=== PATIENT | female | born 1970 | race Caucasian/White ===

== ENCOUNTER 2024-04-15 10:42 | Emergency (ER) | payer MEDICARE, MEDICAID ==
[2024-04-15] MEDS: Proparacaine 0.5% Ophth Soln 15 ML Bottle EYERT ONE (12:24)
== END 2024-04-15 12:26 | disposition home or self-care (01) ==
LOC: JP.ED 10:42
DX: H11.31 Conjunctival hemorrhage, right eye (principal); E03.9 Hypothyroidism, unspecified; Z87.891 Personal history of nicotine dependence; Z90.710 Acquired absence of both cervix and uterus; Z79.899 Other long term (current) drug therapy; Z79.890 Hormone replacement therapy; Z88.2 Allergy status to sulfonamides
CPT/HCPCS: 99283; A9270

== ENCOUNTER 2024-05-24 09:52 | Emergency (ER) | payer MEDICARE, MEDICAID ==
[2024-05-24 11:53] LABS: MEAN CORPUSCULAR HEMOGLOBIN 27.2 pg (31.6-35.5); MEAN CORPUSCULAR HGB CONC 34.2 g/dL (31.6-35.5); MEAN CORPUSCULAR VOLUME 79.5 fL (81.4-99.0); RED BLOOD CELL COUNT 2.39 M/uL (3.77-5.24); WHITE BLOOD CELL COUNT,WBC 2.6 K/uL (3.2-11.0)
[2024-05-24] MEDS: Sodium Chloride 0.9% 10 ML Syringe FLUSH PRN (12:11)
[2024-05-24 12:17] LABS: ALANINE AMINOTRANSFERASE,ALT 7 U/L (12-78); ALBUMIN 3.6 g/dL (3.4-5.0); ALKALINE PHOSPHATASE 80 U/L (46-116); ASPARTATE AMNIOTRANSFERASE,AST 14 U/L (15-37); BILIRUBIN TOTAL 2.4 mg/dL (0.2-1.0); BLOOD UREA NITROGEN,BUN 12 mg/dL (7-18); C-REACTIVE PROTEIN 5.21 mg/dL (<0.50); CALCIUM 9.2 mg/dL (8.5-10.1); CARBON DIOXIDE,CO2 24 mmol/L (21-32); CHLORIDE,CL 98 mmol/L (100-108); CREATININE 0.8 mg/dL (0.6-1.0); EST CRCL DRUG DOSING (CG) 71.12 mL/min; ESTIMATED GFR 87 mL/min (>60); GLUCOSE RANDOM 106 mg/dL (74-106); PROTEIN TOTAL,TP 7.3 g/dL (6.4-8.2); SODIUM,NA 136 mmol/L (140-148)
[2024-05-24 12:42] LABS: HEMOGLOBIN 6.5 g/dL (11.2-15.5); PLATELET COUNT,PLT 17 K/uL (130-375)
[2024-05-24 12:43] LABS: BAND ABSOLUTE MAN 0.03 K/uL; BAND PERCENT MAN 1 % (5-11); HYPOCHROMASIA MODERATE; LYMPHOCYTES ABSOLUTE MAN 1.22 K/uL (0.8-3.3); LYMPHOCYTES PERCENT MAN 47 % (24-44); METAMYELOCYTE ABSOLUTE MAN 0.21 K/uL; METAMYELOCYTE PERCENT MAN 8 %; MONOCYTES ABSOLUTE MAN 0.26 K/uL (0.20-0.90); MONOCYTES PERCENT MAN 10 % (2-6); MYELOCYTE PERCENT MAN 4 %; NEUTROPHILS ABSOLUTE MAN 0.78 K/uL (1.0-7.6); NRBC MANUAL 3; SCHISTOCYTES FEW; SEG NEUTROPHILS PERCENT MAN 30 % (36-66)
[2024-05-24 12:44] LABS: OVALOCYTES FEW; TEARDROP CELLS MODERATE
[2024-05-24 12:51] LABS: INR 1.2; PROTHROMBIN TIME 11.8 sec (9.2-10.6)
[2024-05-24 12:53] LABS: PTT,PARTIAL THROMBOPLSTIN TIME 22.5 sec (21.8-27.3)
[2024-05-24] MEDS ORDERED: Sodium Chloride 0.9% 100 ML IV ONE (13:08)
[2024-05-24] MEDS ORDERED: Sodium Chloride 0.9% 10 ML Syringe FLUSH PRN (13:08)
[2024-05-24] MEDS ORDERED: Iopamidol 755 Mg/ML 100 ML Bottle IV SCH (13:15)
[2024-05-24] MEDS: Acetaminophen 325 MG Tab PO ONE (14:31)
[2024-05-24] MEDS: diphenhydrAMINE 50 MG/ML SDV IV ONE (14:36)
[2024-05-24] MEDS: Amoxicillin/Clavulanate K 875-125 MG Tab PO ONE (16:16)
[2024-05-24] MEDS: Cefepime 2 GM in Sodium Chloride 0.9% 50 ML IV ONE (16:54)
== END 2024-05-24 17:58 | disposition home or self-care (01) ==
LOC: JP.ED 09:52
DX: R06.00 Dyspnea, unspecified (principal); R53.83 Other fatigue; D64.9 Anemia, unspecified; D69.6 Thrombocytopenia, unspecified; D72.819 Decreased white blood cell count, unspecified; C80.1 Malignant (primary) neoplasm, unspecified; E03.9 Hypothyroidism, unspecified; Z88.2 Allergy status to sulfonamides; Z79.890 Hormone replacement therapy; Z79.899 Other long term (current) drug therapy; Z90.710 Acquired absence of both cervix and uterus
CPT/HCPCS: 36415; 36430; 71045; 71275; 80053; 83605; 84484; 85025; 85610; 85730; 86140; 86850; 86900; 86901; 86920; 86922; 87040; 93005; 93010; 96365; 96375; 99284; 99285; A9270; J0692; J1200; J3490; P9016

== ENCOUNTER 2024-06-06 10:36 | Emergency (ER) | payer MEDICARE, MEDICAID ==
[2024-06-06] MEDS ORDERED: Naloxone 0.4 MG/ML SDV IVPUSH PRN (11:29)
[2024-06-06 11:40] LABS: CARBOXYHEMOGLOBIN 2.4 % (0.0-1.6); METHEMOGLOBIN 1.2 %; O2 SATURATION VENOUS 23.6; OXYHEMOGLOBIN 22.8 %; PCO2 VENOUS 30.5 mm/Hg; PH,VENOUS 7.365 (7.350-7.450); PO2 VENOUS 19.6 mm/Hg; TOTAL HEMOGLOBIN 8.7 g/dL (12.0-16.0)
[2024-06-06] MEDS: Nitroglycerin 0.4 MG Tab.SL SL PRN (11:47)
[2024-06-06] MEDS: Ondansetron 4 MG/2 ML SDV IVPUSH ONE (11:49)
[2024-06-06 11:50] LABS: INR 1.2; PROTHROMBIN TIME 12.5 sec (9.2-10.6)
[2024-06-06] MEDS: Sodium Chloride 0.9% 1,000 ML IV ONE (11:50)
[2024-06-06] MEDS: HYDROmorphone 0.5 MG/0.5 ML Syringe IVPUSH PRN (11:50)
[2024-06-06] MEDS: Aspirin 81 MG Tab.Chew PO ONE (11:50)
[2024-06-06 11:57] LABS: A/G RATIO 0.7 (1.2-2.2); ALANINE AMINOTRANSFERASE,ALT 15 U/L (12-78); ALBUMIN 3.3 g/dL (3.4-5.0); ALKALINE PHOSPHATASE 90 U/L (46-116); ASPARTATE AMNIOTRANSFERASE,AST 36 U/L (15-37); BILIRUBIN TOTAL 4.4 mg/dL (0.2-1.0); BLOOD UREA NITROGEN,BUN 18 mg/dL (7-18); CALCIUM 9.7 mg/dL (8.5-10.1); CARBON DIOXIDE,CO2 18 mmol/L (21-32); CHLORIDE,CL 90 mmol/L (100-108); CREATININE 1.4 mg/dL (0.6-1.0); EST CRCL DRUG DOSING (CG) 40.64 mL/min; ESTIMATED GFR 44 mL/min (>60); GLUCOSE RANDOM 165 mg/dL (74-106); POTASSIUM,K 4.5 mmol/L (3.6-5.2); PRO B-TYPE NATRIUR PEPT,BNPPRO 4258 pg/mL (5-125); PROTEIN TOTAL,TP 7.8 g/dL (6.4-8.2); SODIUM,NA 128 mmol/L (140-148)
[2024-06-06 12:03] LABS: CORONAVIRUS COVID-19 NAA NEGATIVE (NEGATIVE); INFLUENZA A NAA NEGATIVE (NEGATIVE); INFLUENZA B NAA NEGATIVE (NEGATIVE); RESPIRATORY SYNCYTIAL VIR NAA NEGATIVE (NEGATIVE)
[2024-06-06 12:04] LABS: ANION GAP 24.5 mmol/L (5.0-14.0); TROPONIN I HIGH SENSITIVITY 3266.9 pg/mL (<=60.3)
[2024-06-06 12:13] LABS: HEMATOCRIT 23.8 % (34.3-46.0); HEMOGLOBIN 8.2 g/dL (11.2-15.5); MEAN CORPUSCULAR HEMOGLOBIN 28.1 pg (31.6-35.5); MEAN CORPUSCULAR HGB CONC 34.5 g/dL (31.6-35.5); MEAN CORPUSCULAR VOLUME 81.5 fL (81.4-99.0); PLATELET COUNT,PLT 47 K/uL (130-375); RED BLOOD CELL COUNT 2.92 M/uL (3.77-5.24); WHITE BLOOD CELL COUNT,WBC 5.3 K/uL (3.2-11.0)
[2024-06-06 12:14] LABS: ANISOCYTOSIS FEW; ATYPICAL LYMPHOCYTES FEW; BAND ABSOLUTE MAN 0.58 K/uL; BAND PERCENT MAN 11 % (5-11); LYMPHOCYTES ABSOLUTE MAN 1.11 K/uL (0.8-3.3); LYMPHOCYTES PERCENT MAN 21 % (24-44); MONOCYTES ABSOLUTE MAN 1.54 K/uL (0.20-0.90); MONOCYTES PERCENT MAN 29 % (2-6); NEUTROPHILS ABSOLUTE MAN 2.07 K/uL (1.0-7.6); POIKILOCYTOSIS FEW; SEG NEUTROPHILS PERCENT MAN 39 % (36-66)
[2024-06-06] MEDS: Heparin Sodium/D5W 25,000 UNITS/500 ML BAG IV SCH (12:14)
== END 2024-06-06 12:43 ==
LOC: JP.ED 10:36
DX: I21.3 ST elevation (STEMI) myocardial infarction of unspecified site (principal); E03.9 Hypothyroidism, unspecified; Z86.16 Personal history of COVID-19; Z90.710 Acquired absence of both cervix and uterus; Z87.891 Personal history of nicotine dependence; Z79.899 Other long term (current) drug therapy; Z79.890 Hormone replacement therapy; Z88.2 Allergy status to sulfonamides
CPT/HCPCS: 0241U; 36415; 71045; 71045-26; 80053; 82803; 83605; 83880; 84145; 84484; 85025; 85379; 85610; 87040; 93005; 93010; 96361; 96365; 96375; 99285; 99285-25; A9270-GY; J1171; J1644; J2405; J7030

== ENCOUNTER 2024-08-02 11:33 | Inpatient (IN) | payer MEDICARE, MEDICAID ==
[2024-08-02 13:03] LABS: MEAN CORPUSCULAR HEMOGLOBIN 27.9 pg (31.6-35.5); MEAN CORPUSCULAR HGB CONC 35.9 g/dL (31.6-35.5); MEAN CORPUSCULAR VOLUME 77.6 fL (81.4-99.0); RED BLOOD CELL COUNT 2.19 M/uL (3.77-5.24); WHITE BLOOD CELL COUNT,WBC 1.6 K/uL (3.2-11.0)
[2024-08-02 13:13] LABS: HEMOGLOBIN 6.1 g/dL (11.2-15.5)
[2024-08-02 13:14] LABS: APPEARANCE,URINE SLIGHTLY CLOUDY (CLEAR); BILIRUBIN,URINE SMALL (NEGATIVE); GLUCOSE,URINE NEGATIVE (NEGATIVE); KETONES,URINE 15 mg/dL (NEGATIVE); LEUKOCYTE ESTERASE,URINE NEGATIVE (NEGATIVE); NITRITE,URINE NEGATIVE (NEGATIVE); OCCULT BLOOD,URINE TRACE-INTACT (NEGATIVE); PROTEIN,URINE 100 mg/dL (NEGATIVE)
[2024-08-02 13:16] LABS: PLATELET COUNT,PLT 15 K/uL (130-375)
[2024-08-02 13:26] LABS: A/G RATIO 0.8 (1.2-2.2); ALANINE AMINOTRANSFERASE,ALT 6 U/L (12-78); ALKALINE PHOSPHATASE 60 U/L (46-116); ASPARTATE AMNIOTRANSFERASE,AST 14 U/L (15-37); BILIRUBIN TOTAL 2.6 mg/dL (0.2-1.0); BLOOD UREA NITROGEN,BUN 11 mg/dL (7-18); CALCIUM 8.5 mg/dL (8.5-10.1); CARBON DIOXIDE,CO2 27 mmol/L (21-32); CHLORIDE,CL 94 mmol/L (100-108); CREATININE 0.7 mg/dL (0.6-1.0); EST CRCL DRUG DOSING (CG) 78.03 mL/min; ESTIMATED GFR 102 mL/min (>60); GLUCOSE RANDOM 98 mg/dL (74-106); POTASSIUM,K 3.8 mmol/L (3.6-5.2); PROTEIN TOTAL,TP 6.8 g/dL (6.4-8.2); SODIUM,NA 131 mmol/L (140-148)
[2024-08-02 13:31] LABS: ANION GAP 13.8 mmol/L (5.0-14.0)
[2024-08-02 13:33] LABS: AMORPHOUS SEDIMENT,URINE NOT SEEN; BACTERIA,URINE FEW; COLOR,URINE ORANGE (YELLOW); EPITHELIAL CELLS,URINE FEW; MUCUS,URINE FEW; RBC,URINE 0-5 (0-5)
[2024-08-02] MEDS: Acetaminophen 325 MG Tab PO ONE (13:43)
[2024-08-02 14:08] LABS: ATYPICAL LYMPHOCYTES FEW; LYMPHOCYTES ABSOLUTE MAN 0.69 K/uL (0.8-3.3); LYMPHOCYTES PERCENT MAN 43 % (24-44); METAMYELOCYTE ABSOLUTE MAN 0.08 K/uL; METAMYELOCYTE PERCENT MAN 5 %; MONOCYTES PERCENT MAN 25 % (2-6); NEUTROPHILS ABSOLUTE MAN 0.43 K/uL (1.0-7.6); POIKILOCYTOSIS MODERATE; SEG NEUTROPHILS PERCENT MAN 27 % (36-66)
[2024-08-02] MEDS: Sodium Chloride 0.9% 1,000 ML IV SCH ×2 (14:20→16:40)
[2024-08-02] MEDS ORDERED: cefTRIAXone 2 GM in Sodium Chloride 0.9% 50 ML IV SCH (16:00)
[2024-08-02] MEDS ORDERED: Ondansetron 4 MG/2 ML SDV IV PRN (16:04)
[2024-08-02] MEDS ORDERED: Melatonin 3 MG Tab PO PRN (16:04)
[2024-08-02] MEDS: cefTRIAXone 2 GM in Sodium Chloride 0.9% 50 ML IV SCH (16:41)
[2024-08-02] MEDS: VANCOmycin 1 GM in Sodium Chloride 0.9% 250 ML IV SCH (17:20)
[2024-08-02] MEDS: Acetaminophen 325 MG Tab PO PRN (20:27)
[2024-08-02] MEDS: Lactobacillus Rhamnosus GG (Probiotic) Cap PO SCH (20:27)
[2024-08-02] MEDS: Ketorolac 15 MG/ML SDV IVPUSH ONE (21:58)
[2024-08-03 05:04] LABS: HEMATOCRIT 25.2 % (34.3-46.0); HEMOGLOBIN 8.9 g/dL (11.2-15.5); MEAN CORPUSCULAR HEMOGLOBIN 28.1 pg (31.6-35.5); MEAN CORPUSCULAR HGB CONC 35.3 g/dL (31.6-35.5); MEAN CORPUSCULAR VOLUME 79.5 fL (81.4-99.0); RED BLOOD CELL COUNT 3.17 M/uL (3.77-5.24); WHITE BLOOD CELL COUNT,WBC 1.8 K/uL (3.2-11.0)
[2024-08-03 05:18] LABS: CALCIUM 8.3 mg/dL (8.5-10.1); CREATININE 0.7 mg/dL (0.6-1.0); EST CRCL DRUG DOSING (CG) 78.68 mL/min; POTASSIUM,K 3.4 mmol/L (3.6-5.2)
[2024-08-03 05:26] LABS: PLATELET COUNT,PLT 13 K/uL (130-375)
[2024-08-03 05:27] LABS: ATYPICAL LYMPHOCYTES RARE; BASOPHILS ABSOLUTE MAN 0.04 K/uL (0.00-0.10); BASOPHILS PERCENT MAN 2 % (0-1); LYMPHOCYTES PERCENT MAN 22 % (24-44); METAMYELOCYTE ABSOLUTE MAN 0.14 K/uL; METAMYELOCYTE PERCENT MAN 8 %; MONOCYTES ABSOLUTE MAN 0.22 K/uL (0.20-0.90); MONOCYTES PERCENT MAN 12 % (2-6); NEUTROPHILS ABSOLUTE MAN 1.01 K/uL (1.0-7.6); SEG NEUTROPHILS PERCENT MAN 56 % (36-66)
[2024-08-03 05:28] LABS: ANION GAP 13.4 mmol/L (5.0-14.0); POIKILOCYTOSIS FEW
[2024-08-03] MEDS: Levothyroxine 25 MCG Tab PO SCH (08:03)
[2024-08-03] MEDS: Metoprolol Succinate 25 MG Tab.ER PO SCH (08:03)
[2024-08-03] MEDS: Pantoprazole 40 MG Tab.CR PO SCH (08:03)
[2024-08-03] MEDS ORDERED: Levothyroxine 88 MCG Tab PO SCH (09:00)
[2024-08-03] MEDS: Potassium Chloride 20 MEQ Tab.ER PO ONE (09:32)
[2024-08-03] MEDS: Sennosides/Docusate Sodium 50-8.6 MG Tab PO PRN (11:24)
[2024-08-03] MEDS: Magnesium Hydroxide 400 MG/5 ML Susp 30 ML Cup PO PRN (11:24)
[2024-08-04 05:13] LABS: HEMATOCRIT 25.3 % (34.3-46.0); MEAN CORPUSCULAR HEMOGLOBIN 28.6 pg (31.6-35.5); MEAN CORPUSCULAR HGB CONC 35.6 g/dL (31.6-35.5); MEAN CORPUSCULAR VOLUME 80.3 fL (81.4-99.0); RED BLOOD CELL COUNT 3.15 M/uL (3.77-5.24); WHITE BLOOD CELL COUNT,WBC 1.7 K/uL (3.2-11.0)
[2024-08-04 05:22] LABS: CALCIUM 8.1 mg/dL (8.5-10.1); CREATININE 0.5 mg/dL (0.6-1.0); EST CRCL DRUG DOSING (CG) 110.15 mL/min
[2024-08-04 06:04] LABS: PLATELET COUNT,PLT 10 K/uL (130-375)
[2024-08-04 06:06] LABS: BAND ABSOLUTE MAN 0.03 K/uL; BAND PERCENT MAN 2 % (5-11); LYMPHOCYTES ABSOLUTE MAN 0.48 K/uL (0.8-3.3); LYMPHOCYTES PERCENT MAN 28 % (24-44); METAMYELOCYTE PERCENT MAN 6 %; MONOCYTES ABSOLUTE MAN 0.24 K/uL (0.20-0.90); MONOCYTES PERCENT MAN 14 % (2-6); NEUTROPHILS ABSOLUTE MAN 0.85 K/uL (1.0-7.6); SEG NEUTROPHILS PERCENT MAN 50 % (36-66)
[2024-08-04] MEDS: oxyCODONE 5 MG Tab PO PRN (12:13)
[2024-08-04] MEDS: Ondansetron 4 MG Tab.DIS PO PRN (12:14)
[2024-08-04] MEDS: HYDROmorphone 0.5 MG/0.5 ML Syringe IVPUSH PRN (13:25)
[2024-08-04] MEDS: Iopamidol 612 MG/ML 100 ML Bottle IV SCH (16:11)
[2024-08-04] MEDS: Sodium Chloride 0.9% 10 ML Syringe FLUSH PRN (16:11)
[2024-08-04] MEDS: Sodium Chloride 0.9% 100 ML IV SCH (16:11)
[2024-08-05 04:21] LABS: HEMATOCRIT 24.8 % (34.3-46.0); HEMOGLOBIN 8.6 g/dL (11.2-15.5); MEAN CORPUSCULAR HEMOGLOBIN 28.3 pg (31.6-35.5); MEAN CORPUSCULAR HGB CONC 34.7 g/dL (31.6-35.5); MEAN CORPUSCULAR VOLUME 81.6 fL (81.4-99.0); PLATELET COUNT,PLT 41 K/uL (130-375); RED BLOOD CELL COUNT 3.04 M/uL (3.77-5.24); WHITE BLOOD CELL COUNT,WBC 1.7 K/uL (3.2-11.0)
[2024-08-05 04:36] LABS: CALCIUM 8.8 mg/dL (8.5-10.1); CREATININE 0.6 mg/dL (0.6-1.0); EST CRCL DRUG DOSING (CG) 91.79 mL/min; POTASSIUM,K 3.8 mmol/L (3.6-5.2)
[2024-08-05 04:53] LABS: ANION GAP 11.8 mmol/L (5.0-14.0)
[2024-08-05 04:57] LABS: ANISOCYTOSIS MARKED; BAND ABSOLUTE MAN 0.19 K/uL; BAND PERCENT MAN 11 % (5-11); LYMPHOCYTES ABSOLUTE MAN 0.46 K/uL (0.8-3.3); LYMPHOCYTES PERCENT MAN 27 % (24-44); METAMYELOCYTE ABSOLUTE MAN 0.12 K/uL; METAMYELOCYTE PERCENT MAN 7 %; MONOCYTES ABSOLUTE MAN 0.14 K/uL (0.20-0.90); MONOCYTES PERCENT MAN 8 % (2-6); MYELOCYTE ABSOLUTE MAN 0.02; MYELOCYTE PERCENT MAN 1 %; NEUTROPHILS ABSOLUTE MAN 0.78 K/uL (1.0-7.6); POIKILOCYTOSIS MODERATE; SEG NEUTROPHILS PERCENT MAN 46 % (36-66)
[2024-08-05] MEDS: Filgrastim-AYOW (Releuko) 300 MCG/0.5 ML Syringe SUBCUT ONE (12:20)
[2024-08-05] MEDS: Doxycycline 100 MG Cap PO SCH (12:20)
[2024-08-05] MEDS: Simethicone 125 MG Tab.Chew PO PRN (18:02)
[2024-08-06 05:56] LABS: HEMATOCRIT 24.4 % (34.3-46.0); HEMOGLOBIN 8.5 g/dL (11.2-15.5); MEAN CORPUSCULAR HEMOGLOBIN 28.5 pg (31.6-35.5); MEAN CORPUSCULAR HGB CONC 34.8 g/dL (31.6-35.5); MEAN CORPUSCULAR VOLUME 81.9 fL (81.4-99.0); RED BLOOD CELL COUNT 2.98 M/uL (3.77-5.24); WHITE BLOOD CELL COUNT,WBC 2.6 K/uL (3.2-11.0)
[2024-08-06 05:59] LABS: PLATELET COUNT,PLT 27 K/uL (130-375)
[2024-08-06 06:11] LABS: ANION GAP 8.9 mmol/L (5.0-14.0); CALCIUM 8.7 mg/dL (8.5-10.1); CREATININE 0.6 mg/dL (0.6-1.0); EST CRCL DRUG DOSING (CG) 91.79 mL/min; POTASSIUM,K 3.9 mmol/L (3.6-5.2)
[2024-08-06 06:35] LABS: ANISOCYTOSIS MARKED; BAND ABSOLUTE MAN 0.23 K/uL; BAND PERCENT MAN 9 % (5-11); LYMPHOCYTES ABSOLUTE MAN 0.44 K/uL (0.8-3.3); LYMPHOCYTES PERCENT MAN 17 % (24-44); MONOCYTES ABSOLUTE MAN 0.23 K/uL (0.20-0.90); MONOCYTES PERCENT MAN 9 % (2-6); MYELOCYTE ABSOLUTE MAN 0.21; MYELOCYTE PERCENT MAN 8 %; NEUTROPHILS ABSOLUTE MAN 1.48 K/uL (1.0-7.6); POIKILOCYTOSIS MODERATE; SEG NEUTROPHILS PERCENT MAN 57 % (36-66)
== END 2024-08-06 13:45 | disposition home or self-care (01) | DRG 603 ==
LOC: JP.ED 11:33 → JP.MS 15:03
PROVIDERS: ADMIT Internal Medicine; ATTEND Internal Medicine
DX: L03.114 Cellulitis of left upper limb (principal); D61.818 Other pancytopenia; D84.9 Immunodeficiency, unspecified; C56.9 Malignant neoplasm of unspecified ovary; C80.0 Disseminated malignant neoplasm, unspecified; C79.51 Secondary malignant neoplasm of bone; C78.5 Secondary malignant neoplasm of large intestine and rectum; D70.9 Neutropenia, unspecified; D46.9 Myelodysplastic syndrome, unspecified; K59.9 Functional intestinal disorder, unspecified; E03.9 Hypothyroidism, unspecified; K59.09 Other constipation; E87.6 Hypokalemia; Z79.60 Long term (current) use of unspecified immunomodulators and immunosuppressants; Z88.2 Allergy status to sulfonamides; Z79.899 Other long term (current) drug therapy; Z87.81 Personal history of (healed) traumatic fracture; Z90.710 Acquired absence of both cervix and uterus
CPT/HCPCS: 36415; 36430; 74177; 80048; 80053; 81001; 83605; 84145; 85025; 86850; 86900; 86901; 86920; 86922; 87040; 87086; 96360; 96361; 99284-25; A9270-GY; J0696; J1171; J1642; J1885; J3490; J7030; J7050; P9016; P9034; Q0162; Q5125; Q9967

== ENCOUNTER 2024-08-09 10:06 | Emergency (ER) | payer MEDICARE, MEDICAID ==
[2024-08-09] MEDS ORDERED: Sodium Chloride 0.9% 10 ML Syringe FLUSH PRN ×2 (10:45→10:54)
[2024-08-09] MEDS ORDERED: Iopamidol 612 MG/ML 100 ML Bottle IV PRN (10:54)
[2024-08-09] MEDS ORDERED: Sodium Chloride 0.9% 80 ML IV ONE (10:54)
[2024-08-09] MEDS: Ondansetron 4 MG/2 ML SDV IVPUSH ONE (11:21)
[2024-08-09 11:27] LABS: HEMATOCRIT 23.9 % (34.3-46.0); HEMOGLOBIN 8.4 g/dL (11.2-15.5); MEAN CORPUSCULAR HEMOGLOBIN 28.6 pg (31.6-35.5); MEAN CORPUSCULAR HGB CONC 35.1 g/dL (31.6-35.5); MEAN CORPUSCULAR VOLUME 81.3 fL (81.4-99.0); RED BLOOD CELL COUNT 2.94 M/uL (3.77-5.24); WHITE BLOOD CELL COUNT,WBC 2.5 K/uL (3.2-11.0)
[2024-08-09] MEDS: HYDROmorphone 1 MG/ML Syringe IVPUSH ONE (11:27)
[2024-08-09] MEDS: Sodium Chloride 0.9% 1,000 ML IV STA (11:28)
[2024-08-09 11:36] LABS: PLATELET COUNT,PLT 11 K/uL (130-375)
[2024-08-09 11:49] LABS: A/G RATIO 0.7 (1.2-2.2); ALANINE AMINOTRANSFERASE,ALT 10 U/L (12-78); ALBUMIN 3.1 g/dL (3.4-5.0); ALKALINE PHOSPHATASE 111 U/L (46-116); ASPARTATE AMNIOTRANSFERASE,AST 20 U/L (15-37); BILIRUBIN TOTAL 2.1 mg/dL (0.2-1.0); BLOOD UREA NITROGEN,BUN 12 mg/dL (7-18); CALCIUM 9.1 mg/dL (8.5-10.1); CARBON DIOXIDE,CO2 26 mmol/L (21-32); CHLORIDE,CL 92 mmol/L (100-108); CREATININE 0.8 mg/dL (0.6-1.0); EST CRCL DRUG DOSING (CG) 68.27 mL/min; ESTIMATED GFR 87 mL/min (>60); GLUCOSE RANDOM 107 mg/dL (74-106); PROTEIN TOTAL,TP 7.9 g/dL (6.4-8.2); SODIUM,NA 132 mmol/L (140-148)
[2024-08-09 12:01] LABS: BAND PERCENT MAN 8 % (5-11); LYMPHOCYTES ABSOLUTE MAN 0.33 K/uL (0.8-3.3); LYMPHOCYTES PERCENT MAN 13 % (24-44); METAMYELOCYTE PERCENT MAN 12 %; MONOCYTES ABSOLUTE MAN 0.13 K/uL (0.20-0.90); MONOCYTES PERCENT MAN 5 % (2-6); NEUTROPHILS ABSOLUTE MAN 1.55 K/uL (1.0-7.6); SEG NEUTROPHILS PERCENT MAN 62 % (36-66)
[2024-08-09 12:02] LABS: ANISOCYTOSIS MODERATE; POIKILOCYTOSIS MODERATE
== END 2024-08-09 14:20 | disposition home or self-care (01) ==
LOC: JP.ED 10:06
DX: R10.31 Right lower quadrant pain (principal); E03.9 Hypothyroidism, unspecified; Z90.710 Acquired absence of both cervix and uterus; Z88.2 Allergy status to sulfonamides; Z79.890 Hormone replacement therapy; Z79.899 Other long term (current) drug therapy
CPT/HCPCS: 36415; 74177; 80053; 83605; 83690; 85025; 96361; 96374; 96375; 99284; J1171; J2405; J7030

== ENCOUNTER 2024-08-21 13:15 | Observation (INO) | payer MEDICARE, MEDICAID ==
[2024-08-21] MEDS: Morphine 2 MG/ML SYRINGE IVPUSH PRN (13:50)
[2024-08-21 13:53] LABS: HEMATOCRIT 17.1 % (34.3-46.0); MEAN CORPUSCULAR HEMOGLOBIN 28.7 pg (31.6-35.5); MEAN CORPUSCULAR HGB CONC 29.2 g/dL (31.6-35.5); MEAN CORPUSCULAR VOLUME 98.3 fL (81.4-99.0); RED BLOOD CELL COUNT 1.74 M/uL (3.77-5.24); WHITE BLOOD CELL COUNT,WBC 7.4 K/uL (3.2-11.0)
[2024-08-21 13:54] LABS: PLATELET COUNT,PLT 11 K/uL (130-375)
[2024-08-21 14:18] LABS: A/G RATIO 0.5 (1.2-2.2); ALANINE AMINOTRANSFERASE,ALT 9 U/L (12-78); ALBUMIN 1.8 g/dL (3.4-5.0); ALKALINE PHOSPHATASE 153 U/L (46-116); ASPARTATE AMNIOTRANSFERASE,AST 116 U/L (15-37); BILIRUBIN TOTAL 2.6 mg/dL (0.2-1.0); BLOOD UREA NITROGEN,BUN 57 mg/dL (7-18); CHLORIDE,CL 90 mmol/L (100-108); CREATININE 1.4 mg/dL (0.6-1.0); EST CRCL DRUG DOSING (CG) 39.21 mL/min; ESTIMATED GFR 44 mL/min (>60); PROTEIN TOTAL,TP 5.4 g/dL (6.4-8.2); SODIUM,NA 128 mmol/L (140-148)
[2024-08-21 14:26] LABS: ANION GAP 34.1 mmol/L (5.0-14.0); CARBON DIOXIDE,CO2 10 mmol/L (21-32); GLUCOSE RANDOM 40 mg/dL (74-106); POTASSIUM,K 6.1 mmol/L (3.6-5.2)
[2024-08-21 15:38] LABS: INR 3.3
[2024-08-21] MEDS ORDERED: LORazepam ORAL Concentrate 1MG/0.5ML U/D SL PRN (15:38)
[2024-08-21] MEDS ORDERED: Morphine 10 MG/0.5 ML Oral Syringe PO PRN (15:38)
[2024-08-21 15:50] VITALS: PULSE 86
[2024-08-21 16:05] LABS: BAND PERCENT MAN 4 % (5-11); BLAST ABSOLUTE MAN 1.11 K/uL (0-0); BLASTS PERCENT MAN 15 %; LYMPHOCYTES ABSOLUTE MAN 3.63 K/uL (0.8-3.3); LYMPHOCYTES PERCENT MAN 49 % (24-44); METAMYELOCYTE ABSOLUTE MAN 0.59 K/uL; METAMYELOCYTE PERCENT MAN 8 %; MONOCYTES ABSOLUTE MAN 0.22 K/uL (0.20-0.90); MONOCYTES PERCENT MAN 3 % (2-6); NEUTROPHILS ABSOLUTE MAN 1.55 K/uL (1.0-7.6); SEG NEUTROPHILS PERCENT MAN 21 % (36-66)
[2024-08-21 16:06] LABS: NRBC MANUAL 26; POIKILOCYTOSIS MODERATE; POLYCHROMASIA RARE
[2024-08-21 16:07] LABS: ANISOCYTOSIS MODERATE
[2024-08-21 16:09] LABS: SCHISTOCYTES MODERATE
[2024-08-21 16:14] VITALS: BP 97/76
[2024-08-21] MEDS ORDERED: Ondansetron 4 MG Tab.DIS PO PRN (16:26)
[2024-08-21] MEDS ORDERED: Ondansetron 4 MG/2 ML SDV IV PRN (16:26)
== END 2024-08-21 16:40 | disposition home or self-care (01) ==
LOC: JP.ED 13:15 → JP.MS 15:39
PROVIDERS: ADMIT Internal Medicine; ATTEND Internal Medicine
DX: Z51.5 Encounter for palliative care (principal); N17.9 Acute kidney failure, unspecified; E87.5 Hyperkalemia; E87.20 Acidosis, unspecified; C56.9 Malignant neoplasm of unspecified ovary; C80.0 Disseminated malignant neoplasm, unspecified; D46.9 Myelodysplastic syndrome, unspecified; D64.9 Anemia, unspecified; E03.9 Hypothyroidism, unspecified; Z88.2 Allergy status to sulfonamides; Z79.890 Hormone replacement therapy; Z79.899 Other long term (current) drug therapy
CPT/HCPCS: 36415; 70450; 70450-26; 80053; 85025; 85610; 86850; 86900; 86901; 86920; 86922; 96374; 96376; 99223; 99285-25; J2270